=== PATIENT | female | born 1995 | race African-American/Black ===

== ENCOUNTER 2020-09-07 00:52 | Inpatient (IN) | payer MEDICAID ==
[2020-09-07 01:29] LABS: APPEARANCE,URINE SLIGHTLY-CLOUDY; BILIRUBIN,URINE NEGATIVE (NEGATIVE); COLOR,URINE YELLOW; GLUCOSE, URINE NEGATIVE (NEGATIVE); KETONES,URINE 20 mg/dL (NEGATIVE); LEUKOCYTE ESTERASE,URINE MODERATE (NEGATIVE); NITRITE,URINE NEGATIVE (NEGATIVE); PROTEIN,URINE 100 mg/dL (NEGATIVE); URINE SPECIFIC GRAVITY 1.023; UROBILINOGEN,URINE NEGATIVE mg/dL (<2.0)
[2020-09-07] MEDS ORDERED: OXYTOCIN 10 UNIT/ML VIAL ONE (01:44)
[2020-09-07] MEDS ORDERED: OXYTOCIN/0.9 % SODIUM CHLORIDE 30 UNIT/500 ML RTUINJ ONE (01:44)
[2020-09-07] MEDS ORDERED: MISOPROSTOL 0.2 MG TABLET ONE (01:44)
[2020-09-07] MEDS ORDERED: LIDOCAINE 1% INJ-PF (10 MG/ML) 30 ML SDV ONE (01:44)
[2020-09-07] MEDS ORDERED: PENICILLIN G POTASSIUM 5,000,000 UNIT in DEXTROSE 5%-WATER 100 ML IV ONE (01:45)
[2020-09-07] MEDS ORDERED: RINGERS SOLUTION,LACTATED 1,000 ML IV PRN (01:45)
[2020-09-07] MEDS ORDERED: PENICILLIN G-K 5 MILLION UNIT VIAL ONE ×2 (01:45→05:37)
[2020-09-07 02:25] LABS: ABSOLUTE BASOPHILS # (AUTO) 0.1 10^3/uL (0.0-0.2); ABSOLUTE EOSINOPHILS # (AUTO) 0.1 10^3/uL (0.0-0.6); ABSOLUTE MONOCYTES (AUTO) 0.5 10^3/uL (0.1-1.4); ABSOLUTE NEUT (AUTO) 7.1 10^3/uL (1.7-8.2); HEMATOCRIT 33.2 % (36.0-47.0); HEMOGLOBIN 10.9 g/dL (12.0-15.5); LYMPHOCYTES % (AUTO) 20.4 % (13-45); MEAN CORPUSCULAR HEMOGLOBIN 26.9 pg (27.0-33.4); MEAN CORPUSCULAR HGB CONC 32.8 g/dL (32.0-36.0); MEAN CORPUSCULAR VOLUME 82 fl (80-97); MONOCYTES % (AUTO) 5.5 % (3-13); PLATELET COUNT 239 10^3/uL (150-450); RED BLOOD COUNT 4.05 10^6/uL (3.72-5.28); RED CELL DISTRIBUTION WIDTH 14.6 % (11.5-14.0); SEGMENTED NEUTROPHILS % (AUTO) 72.1 % (42-78); TOTAL CELLS COUNTED % (AUTO) 100 %; WHITE BLOOD COUNT 9.8 10^3/uL (4.0-10.5)
[2020-09-07 02:26] LABS: URINE AMPHETAMINES SCREEN NEGATIVE; URINE BARBITURATES SCREEN NEGATIVE; URINE BENZODIAZEPINES SCREEN NEGATIVE; URINE COCAINE SCREEN NEGATIVE; URINE MARIJUANA (THC) SCREEN NEGATIVE; URINE METHADONE SCREEN NEGATIVE; URINE PHENCYCLIDINE SCREEN NEGATIVE
--- NOTE | 2020-09-07 05:26 | Admission Physical ---
Datetime Report Generated by CPN: 09/07/2020 05:25 CURRENT ADMISSION Chief Complaint: Uterine Contractions Indication for Induction: Not Applicable Admit Impression : Term, Intrauterine ; Active Labor Admit Plan: Admit to Unit ALLERGIES Medication Allergies: No Medication Allergies: No Known Allergies (09/07/2020) Latex: No Latex Allergies OBSTETRICAL HISTORY EDC: 09/09/2020 00:00 : 3 Para: 2 Term: 2 : 0 SAB: 0 IAB: 0 Ectopic: 0 Livin Cesareans: 0 VBACs: 0 Multiple Births: 0 Gestational Diabetes: No Rh Sensitization: No Incompetent Cervix: No BEN: No Infertility: No ART Treatment: No Uterine Anomaly: No IUGR: No Hx Previous C/S: No Macrosomia: No Hx Loss/Stillborn: No PIH: No Hx : No Placenta Previa/Abruption: No Depression/PP Depression: No PTL/PROM: No Post Hemorrhage: No Current Procedures: Ultrasound; NST SEE RECORDS Alcohol: Yes Alcohol Comments: stopped before Marijuana : No Cocaine: No Other Illicit Drugs: No Cigarettes: Current Some Day Smoker. 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 Surgery: No Heart Disease: No Hosp/Surgery: Yes Autoimmune Disorder: No Anesthetic Complications: No Kidney Disease: No Abnormal Pap Smear: No Neuro/Epilepsy: No Psychiatric Disorders: No Other Medical Diseases: No Hepatitis/Liver Disease: No Significant Family History: No Varicosities/Phlebitis: No Trauma/Violence : No Thyroid Dysfunction: No Medical History Comments: tubes in ears - 2006, 2010 and 2017 INFECTIOUS HISTORY Gonorrhea: No Genital Herpes: No Chlamydia: No Tuberculosis: No Syphilis: No Hepatitis: No HIV/AIDS Exposure: No Rash or Viral Illness: No HPV: Yes Infectious History Comments: abnormal pap- needs colpo PHYSICAL EXAM General: Normal HEENT: Normal Neurologic: Normal Thyroid: Normal Heart: Normal Lungs: Normal Breast: Deferred Back: Normal Abdomen: Normal Genitourinary Exam: Normal Extremities: Normal DTRs: Normal Pelvic Type: Adequate Vital Signs: Reviewed VAGINAL EXAM Dilatation: 4 Effacement: 75 Station: -2 MEMBRANES Pooling: Positive Membranes: Ruptured FETUS A EGA: 39.5 Monitoring: External US FHR- Baseline: 140 Variability: Moderate 6-25bpm Decelerations: None FHR Category: Category I Presentation: Vertex Admit Comment: efw 8-9 lbs PLANS FOR LABOR AND DELIVERY Labor and Delivery: None Pain Management: Epidural Feeding Preference: Both INFORMED CONSENT Signature: with User ID: [email or web address]
[2020-09-07] MEDS: PENICILLIN G POTASSIUM 2,500,000 UNIT in DEXTROSE 5%-WATER 50 ML IV SCH ×3 (05:49→14:46)
[2020-09-07] MEDS ORDERED: OXYTOCIN/0.9 % SODIUM CHLORIDE 30 UNIT/500 ML RTUINJ IV PRN ×2 (08:00→10:43)
[2020-09-07] MEDS ORDERED: EPHEDRINE SULFATE INJ 50 MG/1 ML AMPULE ONE (08:08)
[2020-09-07] MEDS ORDERED: FENTANYL/BUPIVACAINE/NS/PF 300 MCG/150 ML RTUINJ EPI ONE (08:09)
[2020-09-07] MEDS ORDERED: ROPIVACAINE HCL 0.2% INJ/PF (2 MG/ML) 20 ML SDV ONE (08:09)
[2020-09-07] MEDS ORDERED: GLYCERIN/WITCH HAZEL LEAF 1 EACH MED..WIPE TP PRN (10:43)
[2020-09-07] MEDS ORDERED: DIPH/PERTUSS(ACELL)/TETANUS VAC/PF 0.5 ML SYR (>=10YO) IM PRN (10:43)
[2020-09-07] MEDS ORDERED: DIBUCAINE 1% OINTMENT 28 GM TP PRN (10:43)
[2020-09-07] MEDS ORDERED: PSEUDOEPHEDRINE HCL 30 MG TABLET PO PRN (10:43)
[2020-09-07] MEDS ORDERED: BENZOCAINE/MENTHOL AEROSOL SPRAY 56 ML TOP PRN (10:43)
[2020-09-07] MEDS ORDERED: DIPHENHYDRAMINE HCL 25 MG CAPSULE PO PRN (10:43)
[2020-09-07] MEDS ORDERED: MAGNESIUM HYDROXIDE SUSP 30 ML UDCUP PO PRN (10:43)
[2020-09-07] MEDS ORDERED: PROMETHAZINE HCL 25 MG TABLET PO PRN (10:43)
[2020-09-07] MEDS ORDERED: ACETAMINOPHEN 325 MG TABLET PO PRN (10:43)
[2020-09-07] MEDS ORDERED: ACETAMINOPHEN WITH CODEINE #3 TABLET PO PRN ×2 (10:43)
[2020-09-07] MEDS ORDERED: PROMETHAZINE HCL 25 MG SUPP.RECT PR PRN (10:43)
[2020-09-07] MEDS ORDERED: PROMETHAZINE HCL INJ 25 MG/1 ML VIAL IV PRN (10:43)
[2020-09-07] MEDS ORDERED: ZOLPIDEM TARTRATE 5 MG TABLET PO PRN (10:43)
[2020-09-07] MEDS ORDERED: MEASLES,MUMPS&RUBELLA VACC/PF 0.5 ML VIAL SUBCUT PRN (10:43)
[2020-09-07] MEDS ORDERED: NA PHOS,M-B/NA PHOS,DI-BA (ADULT) 133 ML ENEMA PR PRN (10:43)
[2020-09-07] MEDS ORDERED: IBUPROFEN 800 MG TABLET ONE (12:11)
[2020-09-07] MEDS: IBUPROFEN 800 MG TABLET PO SCH ×3 (12:12→22:29)
--- NOTE | 2020-09-07 12:30 | Delivery Summary ---
Del Sum A-C Datetime Report Generated by CPN: 09/07/2020 12:30 DELIVERY PERSONNEL DELIVERY PERSONNEL: [id number] Delivery Doctor:: Marina Sahu CNM Nurse Transport Truck Driver Certified:: Marina Sahu CNM WELDER [employer]IELD[employer] ARC:: Kervin Tolentino [employer] Labor and Delivery Nurse:: Kenzie Grimm RNauto top mechanic Nurse:: BELGICA Meadows Nursery Nurse:: Lady Ackerman RN Nursery Nurse:: Adelita Rucker RN Arboriculture Instructor/CASEWORKER: Zaida Rincon, ST MATERNAL INFORMATION Delivery Anesthesia: Epidural Medications After Delivery: Pitocin Bolus-Please Comment Estimated Blood Loss (ml): 250 Delivery QBL: 250 Maternal Complications: None Provider Comments: SYEDA VIABLE FEMALE WITH SPONTANEOUS CRY. CORD DOUBLE CLAMPED AND CUT. SPONTANEOUS INTACT PLACENTA WITH 3VC. NO LACERATIONS. MOTHER AND STABLE IN L_D#3. NURSERY RNs PRESENT FOR DELIVERY D/T MECONIUM STAINED AMNIOTIC FLUID. LABOR SUMMARY EDC: 09/09/2020 00:00 No. Babies in Womb: 1 Attempted: No Labor Anesthesia: Epidural LABOR INFORMATION Reason for Induction: Not Applicable Onset of Labor: 09/06/2020 22:30 Complete Dilatation: 09/07/2020 09:41 Oxytocin: Augmentation Group B Beta Strep: positive Antibiotics # of Doses: 3 Antibiotics Time of Last Dose: 09/07/2020 09:34 Name of Antibiotic Given: Penicillin Steroids Given: None Reason Steroids Not Administered: Not Applicable MEMBRANES Membranes Rupture Method: Spontaneous Rupture of Membranes: 09/06/2020 22:30 Length of Rupture (hr): 11.28 Amniotic Fluid Color: Light Meconium Amniotic Fluid Amount: Small Amniotic Fluid Odor: Normal STAGES OF LABOR Stage 1 hr: 11 Stage 1 min: 11 Stage 2 hr: 0 Stage 2 min: 6 Stage 3 hr: 0 Stage 3 min: 4 Total Time in Labor hr: 11 Total Time in Labor min: 21 VAGINAL DELIVERY Episiotomy: None Laceration #1: None Laceration Extension #1: N/A Laceration Repair: Not Applicable Sponge Count Correct: N/A Sharps Count Correct: N/A CSECTION DELIVERY Primary Indication: N/A Secondary Indication: N/A CSection Incidence: N/A Labor: N/A Elective: N/A CSection Incision: N/A BABY A INFORMATION Infant Delivery Date/Time: 09/07/2020 09:47 Method of Delivery: Vaginal Nurse Controlled Delivery: No Born in Route : No : N/A Forceps: N/A Vacuum Extraction: N/A Shoulder Dystocia : No PRESENTATION/POSITION BABY A Presentation: Cephalic Cephalic Presentation: Vertex Vertex Position: Left Occipital Anterior Breech Presentation: N/A PLACENTA INFORMATION BABY A Placenta Delivery Time : 09/07/2020 09:51 Placenta Method of Delivery: Spontaneous Placenta Status: Delivered SCORES BABY A Heart Rate 1 min: >100 bpm Resp Effort 1 min: Good Cry Reflex Irritability 1 min: Cough or Sneeze or Pulls Away Muscle Tone 1 min: Active Motion Color 1 min: Body Kinsey, Extremities Blue Resuscitation Effort 1 min: Tactile Stimulation SCORE 1 MIN: 9 Heart Rate 5 min: >100 bpm Resp Effort 5 min: Good Cry Reflex Irritability 5 min: Cough or Sneeze or Pulls Away Muscle Tone 5 min: Active Motion Color 5 min: Body Kinsey, Extremities Blue Resuscitation Effort 5 min: Tactile Stimulation SCORE 5 MIN: 9 Resuscitation Effort 10 min: N/A INFORMATION BABY A Gestational Age at Delivery: 39.5 Gestational Status: Full Term- 39- 40.6 Weeks Outcome : Liveborn Condition : Stable Sex: Female IDENTIFICATION BABY A Infant Verification Date/Time: 09/07/2020 09:56 ID Band Number: [id number] Mother's Name Verified: Yes Infant RN Verifying Infant: [employer] Additional Verifying Personnel: [facility] RN WEIGHT/LENGTH BABY A Infant Birthweight (gm): 3450 Infant Weight (lb): 7 Infant Weight (oz): 10 Infant Length (in): 21.00 Length (cm): 53.34 CORD INFORMATION BABY A No. Cord Vessels: 3 Nuchal Cord : N/A Cord Blood Taken: Yes-For Eval (Mom's Blood Type - or O+) Infant Suction: None ASSESSMENT BABY A Infant Complications: None Physical Findings at Delivery: Within Normal Limits Respirations: Appears Normal Skin to Skin: Yes Analytics Lead/ALS Called : No Care By: C Tyron A Rucker Transferred To: Remains with Mother BABY B INFORMATION : N/A SIGNATURES Assignment: Shae Cordova MD Signature: with User ID: [email or web address] : with User ID: [email or web address] : I was personally available for consultation and serving as supervising physician for the MLP.
--- NOTE | 2020-09-07 12:30 | Birth Certificate Data ---
Cert Data Datetime Report Generated by GEORGE: 09/07/2020 12:30 CERTIFICATE DATA Delivery Provider: Marina Sahu CNM (09/07/2020 01:30:BELGICA Meadows) 47a. Care: Yes (09/07/2020 01:30:Zaida Masterson RN) 47b. Date of First Visit: 01/28/2020 00:00 (09/07/2020 01:30:Zaida Masterson RN) 47c. Date of Last Visit: 09/02/2020 00:00 (Annotations: Data stored by Madonna on behalf of user) (09/07/2020 01:30:Zaida Masterson RN) 47d. Number of Visits: 13 (09/07/2020 01:30:Zaida Masterson RN) 48a. Number of Prev Live Births: 2 (09/07/2020 01:30:Zaida Masterson RN) 48b. Now Livin (09/07/2020 01:30:Zaida Masterson RN) 48c. Live Births Now : 0 (09/07/2020 01:30:QS system process) 48d. Date of Last Live : 02/23/2018 00:00 (09/07/2020 01:30:Zaida Masterson RN) RISK FACTORS IN THIS 49a. Diabetes: No (09/07/2020 01:30:Zaida Masterson RN) 49b. Hypertension: No (09/07/2020 01:30:Zaida Masterson RN) 49c. Previous Births: 0 (09/07/2020 01:30:Zaida Masterson RN) 49d. Stillborns: No (09/07/2020 01:30:Zaida Masterson RN) 49d. IUGR: No (09/07/2020 01:30:Zaida Masterson RN) 49e. Infertility Treatment: No (09/07/2020 01:30:Zaida Masterson RN) 49f. Previous Cesareans: 0 (09/07/2020 01:30:Zaida Masterson RN) Mother's Height 50b. Height Inches: 64 (09/07/2020 01:04:QS system process) Mother's Weight 51b. Weight at Delivery (lbs): 183 (09/07/2020 01:04:QS system process) 52. Dt Last Normal Menses Began: 12/03/2019 00:00 (09/07/2020 01:30:Zaida Masterson RN) Infections Present/Treated 53a. Gonorrhea: No (09/07/2020 01:30:Zaida Masterson RN) Results this Hospital Visit : Negative (09/07/2020 01:30:Domenica Dolan RN) 53b. Syphilis: No (09/07/2020 01:30:Zaida Masterson RN) Results this Hospital Visit: NONREACTIVE (09/07/2020 01:53:QS system process) 53c. Chlamydia: No (09/07/2020 01:30:Zaida Masterson RN) Results this Hospital Visit: Negative (09/07/2020 01:30:Domenica Dolan RN) 53d. Hepatitis B: No (09/07/2020 01:30:Zaida Masterson RN) Results this Hospital Visit: Negative (09/07/2020 01:30:Domenica Dolan RN) 53e. Hepatitis C: Negative (09/07/2020 01:30:Domenica Dolan RN) 53h. Mother Tested for HBsAG: Yes (09/07/2020 01:30:Domenica Dolan RN) 53i. Date Tested: 02/25/2020 00:00 (09/07/2020 01:30:Domenica Dolan RN) 53j. Test Result: Negative (09/07/2020 01:30:Domenica Dolan RN) Obstetric Procedures 54a, b, c. Obstetric Procedures: Ultrasound; NST (09/07/2020 01:30:Zaida Masterson RN) Cigarette Smoking Cigarette Smoking: Current Some Day Smoker. [id number] (09/07/2020 01:30:Zaida Masterson RN) 55a. 3 Months Before Preg - Ci (09/07/2020 01:30:Zaida Masterson RN) 55b. 1st Trimester of Preg- Ci (09/07/2020 01:30:Zaida Masterson RN) 55c. 2nd Trimester of Preg- Ci (09/07/2020 01:30:Zaida Masterson RN) 55d. 3rd Trimester of Preg- Ci (09/07/2020 01:30:Zaida Masterson RN) Onset of Labor 56a. PROM >12 Hrs: 11.28 (09/07/2020 03:10:QS system process) 56b. Precipitous Labor <3 Hrs: 11 (09/07/2020 01:30:QS system process) 56c. Prolonged Labor > 20 Hrs: 11 (09/07/2020 01:30:QS system process) 57a. Induction of Labor: Augmentation (09/07/2020 01:30:BELGICA Meadows) 57c. Non-Vertex Presentation A: Vertex (09/07/2020 01:30:BELGICA Meadows) 57d. Steroids - Lung Mat: None (09/07/2020 01:30:BELGICA Meadows) 57d. Steroids - Lung Mat: Not Applicable (09/07/2020 01:30:BELGICA Meadows) 57e. Antibiotics During Labor: 09/07/2020 09:34 (09/07/2020 01:30:Kenzie Grimm RN) 57f. Mat [place] or Temp >100.4: 98.6 (09/07/2020 01:30:Kenzie Grimm RN) 57g. Moderate/Heavy Meconium: Light Meconium (09/07/2020 09:21:Kenzie Grimm RN) 57h. Intolerance of Labor: N/A (09/07/2020 01:30:[facility] : N/A (09/07/2020 01:30:Chitra Robertson [facility]) 57i. Epidural/Spinal Anesthesia: Epidural (09/07/2020 01:30:[facility] Method of Delivery 58a. Forceps - Unsuccessful A: N/A (09/07/2020 01:30:Chitra [facility]) 58b. Vacuum - Unsuccessful A: N/A [facility] 58c. Presentation at 58c. Presentation at - A : Vertex (09/07/2020 01:30:[facility] 58c. Presentation at - A : N/A (09/07/2020 01:30:Chitra [place], [facility]) 58c. Presentation at - A : Cephalic (09/07/2020 01:30:Chitra [place], [facility]) Final Route and Method of Del 58d. Baby A Route/Delivery: Vaginal (09/07/2020 01:30:Kenzie Grimm RN) 58e. Trial of Labor Attempted: No (09/07/2020 01:30:Chitra [place], [facility]) 58e. Trial of Labor Attempted A: N/A (09/07/2020 01:30:Chitra [place], [facility]) 58e. Trial of Labor Attempted B: N/A (09/07/2020 01:30:Chitra [place], [facility]) Maternal Morbidity 59b. 3rd or 4th Degree Lacs: None (09/07/2020 01:30:Chitra [place], [facility]) Birthweight Baby A: 3450 (09/07/2020 01:30:Kenzie Grimm RN) 60a. Pounds : 7 (09/07/2020 01:30:QS system process) 60b. Ounces: 10 (09/07/2020 01:30:QS system process) 61. GA at Delivery Baby A: 39.5 (09/07/2020 01:30:Chitra [facility]) : Full Term- 39- 40.6 Weeks (09/07/2020 01:30:QS system process) 62a. 5 Minute Baby A: 9 (09/07/2020 01:30:QS system process)
[2020-09-07] MEDS: FERROUS SULFATE 325 MG TABLET PO SCH (17:52)
[2020-09-07] MEDS: DOCUSATE SODIUM 100 MG CAPSULE PO SCH (17:52)
[2020-09-07] MEDS: FAMOTIDINE 20 MG TABLET PO SCH (22:30)
[2020-09-08] MEDS: IBUPROFEN 800 MG TABLET PO SCH (05:26)
[2020-09-08 08:13] LABS: HEMATOCRIT 28.3 % (36.0-47.0); HEMOGLOBIN 9.5 g/dL (12.0-15.5); MEAN CORPUSCULAR HEMOGLOBIN 28.1 pg (27.0-33.4); MEAN CORPUSCULAR HGB CONC 33.7 g/dL (32.0-36.0); MEAN CORPUSCULAR VOLUME 83 fl (80-97); PLATELET COUNT 213 10^3/uL (150-450); RED CELL DISTRIBUTION WIDTH 14.6 % (11.5-14.0); WHITE BLOOD COUNT 8.4 10^3/uL (4.0-10.5)
[2020-09-08 08:18] VITALS: BP 123/63
[2020-09-08] MEDS: FAMOTIDINE 20 MG TABLET PO SCH (09:39)
[2020-09-08] MEDS: FERROUS SULFATE 325 MG TABLET PO SCH (09:39)
[2020-09-08] MEDS: DOCUSATE SODIUM 100 MG CAPSULE PO SCH (09:39)
[2020-09-08] MEDS ORDERED: SENNOSIDES/DOCUSATE 8.6-50 MG 1 EACH TABLET PO SCH (10:00)
[2020-09-08] MEDS ORDERED: PRENATAL VITAMIN W DHA CAPSULE PO SCH (10:00)
[2020-09-08] MEDS ORDERED: MEDROXYPROGESTERONE ACET INJ 150 MG/1 ML VIAL IM ONE (12:30)
--- NOTE | 2020-09-08 12:38 | PDOC DISCHARGE SUMMARY ---
Impression - Admit/DC Date/PCP Admission Date/Primary Care Provider: 09/07/20 01:44 NILTON MORENO MD Discharge Date: 09/08/20 - Discharge Diagnosis (1) Acute blood loss anemia Is this a current diagnosis for this admission?: Yes (2) Anemia complicating , third trimester Is this a current diagnosis for this admission?: Yes (3) Normal vaginal delivery Is this a current diagnosis for this admission?: Yes (4) SROM (spontaneous rupture of membranes) Is this a current diagnosis for this admission?: Yes (5) Spontaneous onset of labor Is this a current diagnosis for this admission?: Yes - Assessment Summary: 25yo G3 now P3 ppd 1, stable and requesting early discharge. Understands warning s/s and when to rtc/[facility]. - Additional Information Resuscitation Status: Full Code Discharge Diet: As Tolerated, Regular Discharge Activity: Activity As Tolerated, Balance Activity w/Rest, No Lifting Over 10 Pounds, No Lifting/Push/Pulling, Pelvic Rest, No tub bath, Walk Frequently Referrals: NILTON MORENO MD [Primary Care Provider] - Prescriptions: Ibuprofen [Motrin 800 mg Tablet] 800 mg PO Q8HP PRN #20 tablet PRN Reason: For Pain Scale 1-3 Docusate Sodium [Colace 100 mg Capsule] 100 mg PO BID #60 capsule Benzocaine/Menthol [Dermoplast Aerosol [place] 56 ml] 1 applic TOP PRN PRN #1 can PRN Reason: Skin Irritation Ferrous Sulfate [Feosol 325 mg Tablet] 325 mg PO BID #60 tablet Home Medications: Prenat 115/Iron Fum/Folic/Dss [ 19 Tablet] 1 tab PO DAILY 09/07/20 Benzocaine/Menthol [Dermoplast Aerosol [place] 56 ml] 1 applic TOP PRN PRN #1 can 09/08/20 Docusate Sodium [Colace 100 mg Capsule] 100 mg PO BID #60 capsule 09/08/20 Ferrous Sulfate [Feosol 325 mg Tablet] 325 mg PO BID #60 tablet 09/08/20 Ibuprofen [Motrin 800 mg Tablet] 800 mg PO Q8HP PRN #20 tablet 09/08/20 Hospital Course 59. Maternal Morbidity (serious complications experinced by the mother associated with labor and delivery: None of the above Results Laboratory Results: WBC 8.4 10^3/uL (4.0-10.5) 09/08/20 07:33 RBC 3.40 10^6/uL (3.72-5.28) L 09/08/20 07:33 Hgb 9.5 g/dL (12.0-15.5) L 09/08/20 07:33 Hct 28.3 % (36.0-47.0) L 09/08/20 07:33 MCV 83 fl (80-97) 09/08/20 07:33 MCH 28.1 pg (27.0-33.4) 09/08/20 07:33 MCHC 33.7 g/dL (32.0-36.0) 09/08/20 07:33 RDW 14.6 % (11.5-14.0) H 09/08/20 07:33 Plt Count 213 10^3/uL (150-450) 09/08/20 07:33 Lymph % (Auto) 20.4 % (13-45) 09/07/20 01:53 [place] % (Auto) 5.5 % (3-13) 09/07/20 01:53 Eos % (Auto) 1.0 % (0-6) 09/07/20 01:53 Baso % (Auto) 1.0 % (0-2) 09/07/20 01:53 Absolute Neuts (auto) 7.1 10^3/uL (1.7-8.2) 09/07/20 01:53 Absolute Lymphs (auto) 2.0 10^3/uL (0.5-4.7) 09/07/20 01:53 Absolute Monos (auto) 0.5 10^3/uL (0.1-1.4) 09/07/20 01:53 Absolute Eos (auto) 0.1 10^3/uL (0.0-0.6) 09/07/20 01:53 Absolute Basos (auto) 0.1 10^3/uL (0.0-0.2) 09/07/20 01:53 Seg Neutrophils % 72.1 % (42-78) 09/07/20 01:53 Urine Color YELLOW 09/07/20 01:10 Urine Appearance SLIGHTLY-CLOUDY 09/07/20 01:10 Urine pH 6.0 (5.0-9.0) 09/07/20 01:10 Ur Specific [place] 1.023 09/07/20 01:10 Urine Protein 100 mg/dL (NEGATIVE) H 09/07/20 01:10 Urine Glucose (UA) NEGATIVE mg/dL (NEGATIVE) 09/07/20 01:10 Urine Ketones 20 mg/dL (NEGATIVE) H 09/07/20 01:10 Urine Blood LARGE (NEGATIVE) H 09/07/20 01:10 Urine Nitrite NEGATIVE (NEGATIVE) 09/07/20 01:10 Urine Bilirubin NEGATIVE (NEGATIVE) 09/07/20 01:10 Urine Urobilinogen NEGATIVE mg/dL (<2.0) 09/07/20 01:10 Ur Leukocyte Esterase MODERATE (NEGATIVE) H 09/07/20 01:10 Urine Ascorbic Acid NEGATIVE (NEGATIVE) 09/07/20 01:10 Membranes Rupture POSITIVE (NEGATIVE) H 09/07/20 01:10 Urine Opiates Screen NEGATIVE 09/07/20 01:10 Urine Methadone Screen NEGATIVE 09/07/20 01:10 Ur Barbiturates Screen NEGATIVE 09/07/20 01:10 Ur Phencyclidine Scrn NEGATIVE 09/07/20 01:10 Ur Amphetamines Screen NEGATIVE 09/07/20 01:10 U Benzodiazepines Scrn NEGATIVE 09/07/20 01:10 Urine Cocaine Screen NEGATIVE 09/07/20 01:10 U Marijuana (THC) Screen NEGATIVE 09/07/20 01:10 RPR NONREACTIVE (NONREACTIVE) 09/07/20 01:53 Blood Type O POSITIVE 09/07/20 01:53 Antibody Screen NEGATIVE 09/07/20 01:53
== END 2020-09-08 15:31 | disposition home or self-care (01) | DRG 806 ==
LOC: LC 00:52 → LR 01:44 → 2S 12:42
PROVIDERS: ADMIT Obstetrics & Gynecology; ATTEND Obstetrics & Gynecology
PROC: 10E0XZZ Delivery of Products of Conception, External Approach (ICD-10-PCS; principal; 2020-09-07)
DX: O99.824 Streptococcus B carrier state complicating childbirth (principal); D62 Acute posthemorrhagic anemia; Z37.0 Single live birth; O90.81 Anemia of the puerperium; O99.334 Smoking (tobacco) complicating childbirth; F17.210 Nicotine dependence, cigarettes, uncomplicated; Z20.828 Contact with and (suspected) exposure to other viral communicable diseases; Z3A.39 39 weeks gestation of pregnancy
CPT/HCPCS: 1967; 36415; 80307; 81005; 84112; 85025; 85027; 86592; 86850; 86900; 86901; 94760; J2540; J2590; J2795; J3010; J3490; J7060